=== PATIENT | female | born 1970 | race Caucasian/White ===

== ENCOUNTER 2016-08-30 10:41 | Day surgery (SDC) | payer OTHER ==
--- NOTE | ~2016-08-30 | OP ---
Record Of Operation [facility] [address] [place]. [address] NAME: WALT MITCHELL : 74 STATUS : DIS Mike PAT#: [id number] AGE: 46 ADM/REG DATE : 08/30/16 MR#: [id number] REPORT SERV DATE: 08/31/16 DICTATED BY: MAVERICK MISHRA DATE: 08/31/16 REPORT STATUS : Draft TRANSCRIBED BY: MODL DATE: 08/31/16 DATE OF PROCEDURE: 08/30/2016 PREOPERATIVE DIAGNOSES: 1. Acute appendicitis. 2. Non-incarcerated umbilical hernia. POSTOPERATIVE DIAGNOSES: 1. Acute appendicitis. 2. Non-incarcerated umbilical hernia. PROCEDURES: 1. Laparoscopic appendectomy. 2. Primary repair of umbilical hernia. ATTENDING SURGEON: Maverick Mishra M.D. RESIDENT SURGEON: Sindhu Conde M.D. ANESTHESIA: General endotracheal anesthesia and local anesthesia. SPECIMENS: Appendix. BLOOD LOSS: 5 mL. COMPLICATIONS: None. INDICATION: Ms. Mitchell is a 46-year-old female, who presented to the [facility] Emergency Room complaining of abdominal pain. On workup she was found to have a physical exam, laboratory findings, and imaging consistent with acute appendicitis. She was offered a laparoscopic appendectomy. Risks and benefits were discussed with the patient as well as alternatives, questions were sought and answered. The patient wished to proceed. DESCRIPTION OF PROCEDURE: The patient was brought to the operating room and placed supine on the operating room table. After satisfactory induction of general endotracheal anesthesia, the patient's abdomen was prepped and draped in the usual sterile fashion. A time-out was performed with all operating room staff present, and the patient received appropriate antibiotics prior to arrival in the OR, while she was in the emergency room. We began by anesthetizing the area including the umbilicus with local anesthesia. A herniated can be palpated and reduced. I then made an incision with a scalpel and dissected down through the subcutaneous tissues using blunt dissection. The hernia was encountered and a Keisha was passed through this into the abdomen and there were no obstructions. We then placed a 12 mm trocar through the hernia defect in the fascia and a [place]. The abdomen was then insufflated to a pressure of 15 mmHg with carbon dioxide gas. The laparoscope was then inserted and the intraabdominal contents were inspected for injury during trocar placement and none were noted. We then placed two 5 mm trocars, one in the suprapubic region and the Record Of Operation [address] [place]. [address] NAME: WALT MITCHELL : 74 STATUS : DIS Mike PAT#: [id number] AGE: 46 ADM/REG DATE : 08/30/16 MR#: [id number] REPORT SERV DATE: 08/31/16 DICTATED BY: MAVERICK MISHRA DATE: 08/31/16 REPORT STATUS : Draft TRANSCRIBED BY: MODL DATE: 08/31/16 other in the right upper quadrant. Prior to each trocar placement, the skin was anesthetized with local anesthesia, and an incision made with scalpel, and the trocars were placed under direct visualization with the laparoscope. We then placed the patient in to the Trendelenburg [id number] position. We turned our attention to the right lower quadrant and the appendix was identified in the pelvis. This was elevated and we then created a window at the base of the mesentery. Once we had created our window, we then inserted a laparoscopic stapler with a blue tissue load and stapled and divided the appendix at the base. In a similar fashion we then divided the mesoappendix. This was done with a white vascular load stapler. The appendix was then placed into a laparoscopic retrieval bag. We then irrigated the right lower quadrant and the pelvis, and inspected the staple line. Hemostasis was further achieved on the mesoappendix staple line using electrocautery. Once we felt hemostasis was excellent, and then had suctioned all of our effluent and it returned clear. We removed the appendix through the umbilical port site and removed the other two trocars as well. The abdomen was allowed to desufflate entirely with the assistance of Anesthesia providing Valsalva and the insertion of the guard to the Main tip suction through the umbilical port site. Fascia of the umbilical incision were reapproximated using 0 Vicryl on a UR6 in [id number] fashion. All incisions were irrigated with saline and then skin edges were reapproximated using 4-0 Monocryl suture in simple subcuticular fashion. Sterile dressings were placed. The appendix was passed off the table as specimen, and the patient was able to be extubated in the operating room, and transferred to PACU in stable condition. Dr. Mishra, the attending, was present and scrubbed for the entirety of the case. There were no obvious complications. DICTATED BY: Sindhu Conde MD SE/YISEL Maverick Mishra M.D. / [id number] CC: Maverick Mishra M.D.
[2016-08-30 11:31] LABS: BASOPHILS 0.1 %; BASOPHILS ABSOLUTE 0.01 10/3/uL (0.0-0.16); EOSINOPHILS ABSOLUTE 0.09 10/3/uL (0.0-0.53); ER CBC TAT 0 Hrs 05 Mins; HEMATOCRIT 41.9 % (36.0-48.0); HEMOGLOBIN 14.4 g/dL (12.0-16.0); IMMATURE GRANULOCYTES 0.2 %; IMMATURE GRANULOCYTES ABSOLUTE 0.02 10/3/uL (0.0-0.11); LYMPHOCYTES 15.8 %; LYMPHOCYTES ABSOLUTE 1.38 10/3/uL (0.67-4.30); MEAN CORPUS HGB CONC 34.4 g/dL (32.0-36.0); MEAN CORPUSCULAR HEMOGLOB 33.3 pg (26.0-34.0); MEAN CORPUSCULAR VOLUME 96.8 fL (80-100); MEAN PLATELET VOLUME 10.6 fL (9.2-13.0); MONOCYTES 8.7 %; MONOCYTES ABSOLUTE 0.76 10/3/uL (0.21-1.20); NEUTROPHILS 74.2 %; NEUTROPHILS ABSOLUTE 6.45 10/3/uL (2.02-8.40); PLATELET COUNT 229 10/3/uL (150-400); RBC DISTRIBUTION WIDTH 12.6 % (12.0-16.0); RED CELL COUNT 4.33 10/6/uL (4.0-5.6); WHITE BLOOD CELLS 8.7 10/3/uL (4.5-10.5)
[2016-08-30 11:32] LABS: MANUAL DIFF NO %
[2016-08-30 11:34] LABS: ASCORBIC ACID (UR NOT ORDER) NEG (NEG); BILIRUBIN, URINE NEGATIVE (NEG); ER URINALYSIS TAT 0 Hrs 08 Mins; KETONE, URINE NEGATIVE (NEG); LEUKOCYTE ESTERASE(NOT OR NEG (NEG); NITRITE (URINE) NEG (NEG); WBC (NOT ORDERED) (RFLEX) < 1 (0-5)
[2016-08-30 11:39] LABS: INTERNATIONAL NORMAL RATI 0.9 UNITS (-); PARTIAL THROMBO TIME 25.7 SEC (22.5-37.2); PROTIME (NOT ORD) 12.5 SEC (12.0-14.5)
[2016-08-30 11:49] LABS: ALBUMIN 3.7 G/DL (3.5-5.0); ALKALINE PHOSPHATASE 74 U/L (45-117); BUN (BLOOD UREA NITROGEN) 6 MG/DL (6-23); CALCIUM, SERUM 8.8 MG/DL (8.5-10.4); CHLORIDE, SERUM 105 MMOL/L (96-112); CO2 (CARBON DIOXIDE) 28 MMOL/L (24-34); CREATININE 0.73 MG/DL (0.55-1.02); GFR AFRICAN AMERICAN 116 ML/MIN (>=60); GFR NON AFRICAN AMERICAN 100 ML/MIN (>=60); GLOBULIN 3.8 G/DL (2.5-4.1); GLUCOSE, SERUM 95 MG/DL (60-99); SGOT(AST) 12 U/L (5-40); SGPT(ALT) 17 U/L (5-65); SODIUM, SERUM 139 MMOL/L (135-148); TOTAL BILIRUBIN 0.6 MG/DL (0-1.2); TOTAL PROTEIN 7.5 G/DL (6.0-8.5)
[2016-08-30 11:55] LABS: LACTATE 0.9 MMOL/L (0.3-2.4)
[2016-08-30] MEDS ORDERED: PROZAC PO (12:30)
[2016-08-30] MEDS ORDERED: PRILO PO (12:30)
[2016-08-30] MEDS ORDERED: VENTOLIN HFA INH (12:30)
== END 2016-08-30 18:50 | disposition home or self-care (01) ==
LOC: ER 10:41 → SDC/OF 13:50
PROVIDERS: Physician Assistant; Specialist
PROC: 0WQF0ZZ Repair Abdominal Wall, Open Approach (ICD-10-PCS; 2016-08-30)
PROC: 0DTJ4ZZ Resection of Appendix, Percutaneous Endoscopic Approach (ICD-10-PCS; principal; 2016-08-30 15:15)
DX: K35.80 Unspecified acute appendicitis (principal); K42.9 Umbilical hernia without obstruction or gangrene; J44.9 Chronic obstructive pulmonary disease, unspecified; K21.9 Gastro-esophageal reflux disease without esophagitis; Z88.5 Allergy status to narcotic agent
CPT/HCPCS: 71010; 74176; 80053; 81001; 83605; 83690; 84703; 85025; 85610; 85730; 87040; 88304; 93005; 96365; 96375; 99285; A9270-GY; J0330; J1170; J1885; J2250; J2405; J2543; J2710; J3010